=== PATIENT | female | born 1935 | race Caucasian/White ===

== ENCOUNTER 2016-07-21 21:18 | Emergency (ER) | payer OTHER ==
[~2016-07-21 21:18] MED LIST: AMLODIPINE BES2.5 M1 PO; ASPIRIN EC81 M1 PO; ATORVASTATIN CA10 M1 PO; AUGMENTIN 875-1 EACH PO; FOLIC ACID1 M1 PO; JANUVIA 50MG50 MG PO; JANUVIA50 M1 PO; LISINOPRIL20 MG PO; METFORMIN HCL750 MG PO; NOVOLOG100 U/ML SC; ONE DAILY MULT1 EAC2 PO; VITAB121000 PO; VITAMIN D32000 IU PO; ZITHROMAX500 M2 PO
[2016-07-21 21:34] VITALS: BP 179/76
--- NOTE | 2016-07-21 21:40 | ED DYSPNEA/ASTHMA COMPLAINT ---
History of Present Illness General Chief Complaint: General Adult Stated Complaint: " PER SON I THINK SHE ASPIRATED,COUGHING PHLEGM" Source: patient, family, old records Exam Limitations: no limitations Vital Signs & Intake/Output Vital Signs & Intake/Output Vital Signs Date Time Temp Pulse Resp B/P Pulse O2 O2 Flow FiO2 Ox Delivery Rate 07/217 100 Room Air 07/21 2133 96.9 71 24 179/76 Allergies Coded Allergies: No Known Allergies (12/06/15) Reconcile Medications Amlodipine Besylate 2.5 MG TABLET 1 TAB PO DAILY BP (Reported) Aspirin (Ecotrin*) 81 MG TABLET.DR 1 TAB PO DAILY VITAMIN SUPPORT (Reported) Atorvastatin Calcium 10 MG TABLET 1 TAB PO QHS HEART HEALTH (Reported) Azithromycin (Zithromax) 250 MG TABLET 1 DP PO AD bronchitis 2 the first day followed by 1 for days 2-5 Azithromycin (Zithromax) 500 MG TABLET 1 TAB PO DAILY ASPIRATION Cyanocobalamin (Vitamin B-12) 1,000 MCG TAB 1 TAB PO DAILY SUPPLEMET ( Reported) Folic Acid 1 MG TABLET 1 TAB PO DAILY VITAMIN SUPPORT (Reported) Multivitamin (One Daily Multivitamin) 1 EACH TABLET 1 TAB PO DAILY VITAMIN SUPPORT (Reported) Sitagliptin Phosphate (Januvia) 50 MG TABLET 1 TAB PO DAILY DIABETES ( Reported) Vitamin D (Vitamin D3) 2,000 IU SGL 2,000 UNITS PO DAILY SUPPLEMENT (Reported ) Triage Note: PER PT/SON ATE DINNER LATE AND QUICKLY. SHORT TIME LATER BEGAN COUGHING UP PHLEGM, HX OF SAME, SON CONCERNED ABOUT ASPIRATION IN TRIAGE CONTINUALLY SPITTING OUT THICK COPIOUS SECRETIONS Triage Nurses Notes Reviewed? yes Onset: Abrupt Duration: hour(s): (1), better, resolved prior to arrival Timing: recent history Severity: moderate Activities at Onset: s/p eating Prior Episodes/Possible Cause: occasional episodes Associated Symptoms: denies HPI: This is a 80-year-old female with past history of diabetes hypertension and colon cancer in 1998 with previous history of alcohol dependency and frequent aspiration pneumonias presents emergency room with her son who they lives with the patient. According to the patient's son he had made her dinner approximately an hour prior to arrival and while attempting to eat the patient be and to cough aggressively bring up lots of phlegm. They deny any shortness of breath and states that the symptoms have since resolved. She's been in her normal state of health there's been no recent fever chills chest pain shortness of breath. The patient's son states he brought her today because of her frequent history is of aspiration area the patient denies any difficulty swallowing or breathing at this time. no nausea no vomiting, no hemoptysis (REY DUQUE) Past History Travel History Traveled to [place] past 21 day No Medical History Any Pertinent Medical History? see below for history Neurological: CONFUSION HYPONATREMIA EENT: NONE Cardiovascular: hypertension Respiratory: NONE Gastrointestinal: NONE Hepatic: NONE Renal: NONE Musculoskeletal: NONE Psychiatric: NONE Endocrine: diabetes Blood Disorders: NONE Cancer(s): colon/rectal cancer RADIAGRAPH OPERATOR/Reproductive: NONE History of MRSA: No History of VRE: No History of CDIFF: No Surgical History Surgical History: colon resection, hysterectomy, N Psychosocial History Who do you live with Son Services at Home None What is your primary language Romansh Tobacco Use: Never used Family History Family History, If Any: Relation not specified for: FH: heart disease FH: hypertension Hx Contributory? No (REY DUQUE) Review of Systems Review of Systems Constitutional: Reports: see HPI. All Other Systems: Reviewed and Negative Comments Review of systems: See HPI, All other systems negative. Constitutional, no chills no fever, no malaise HEENT: No visual changes no sore throat no congestion, Cardiovascular: No chest pain , no palpitation , no orthopnea no ankle swelling Skin, no jaundice no rashes, no change in skin Respiratory: No dyspnea cough sputum no hemoptysis GI: No nausea no vomiting, no diarrhea, no bloating/constipation : No dysuria Muscle skeletal: No joint pain, no joint swelling, no back pain, no neck pain, Neurologic: No numbness no headache Psych: No stress Heme/endocrine: No bruising no bleeding Immunology: No lymphadenopathy (REY DUQUE) Physical Exam Physical Exam General Appearance: well developed/nourished, no apparent distress, alert, awake , comfortable Respiratory: normal breath sounds, chest non-tender, no respiratory distress, lungs clear Comments: Well-developed well-nourished person in no acute distress HEENT: Normal EENT exam; PERRL, EOMI,HEAD is atraumatic. moist mucous membranes. Neck: Supple, no lymphadenopathy, normal range of motion Back: Nontender, no CVA tenderness. Full range of motion Cardiovascular: Regular rate and rhythms no murmurs rubs or gallops Respiratory: Chest nontender.There were no bony deformities, no asymmetry. No respiratory distress. Patient speaking in full complete sentences. Breath sounds clear to auscultation bilaterally: NO W/R/R Abdomen: Soft, nontender nondistended, no appreciable organomegaly. Normal bowel sounds. No rebound/guarding, Extremity: No edema, full range of motion of extremities, normal and equal pulses bilaterally, 5 out of 5 strength noted to bilateral upper and lower extremities Neuro: Alert oriented x3, motor sensory normal, There were no obvious focal neurologic abnormalities. Skin: No appreciable rash on exposed skin, skin is warm and dry. Psych: Mood and affect is normal, memory and judgment is normal. Core Measures ACS in differential dx? Yes Severe Sepsis Present: No Septic Shock Present: No (GRECIA ESTRADA,REY) Progress Differential Diagnosis: asthma, AMI, bronchitis, CHF, musculoskeletal pain, pericarditis, pulmonary embolism, pneumonia, pneumothorax, unstable angina Plan of Care: Orders Procedure Date/time Status TROPONIN LEVEL 07/21 2211 Complete CBC WITHOUT DIFFERENTIAL 07/21 2211 Complete BASIC METABOLIC PANEL 07/21 2211 Complete EKG 07/21 2211 Active Laboratory Tests 07/21/16 2230: Anion Gap 12, Estimated GFR 43 L, BUN/Creatinine Ratio 27.5 H, Glucose 188 H, Calcium 9.9, Troponin I < 0.01, CBC w Diff NO MAN DIFF REQ, RBC 4.03 L, MCV 88.3, MCH 29.8, RDW 13.3, MPV 8.7, Gran % 76.6 H, Lymphocytes % 15.4 L, Monocytes % 5.4, Eosinophils % 2.1, Basophils % 0.5, Absolute Granulocytes 8.6 H, Absolute Lymphocytes 1.7, Absolute Monocytes 0.6, Absolute Eosinophils 0.2, Absolute Basophils 0.1, PUBS MCHC 33.7 Patient has had no episodes of coughing shortness of breath or any complaints or symptoms at this time labs chest x-ray ordered case discussed with Dr. Villa Patient is ambulatory to the bathroom by herself with steady gait denying any symptoms we'll continue to monitor I discussed the patient and her son at length all of her lab findings and x-ray findings discussed with him need for close follow-up with her primary care physician this week observed for shortness of breath fever chills worsening cough A she clinically appears well prescription for Z-Luis was called into her pharmacy advise return at anytime sooner with any concerns they felt comfortable with this plan. Cleared for discharge (REY DUQUE) Diagnostic Imaging: Viewed by Me: Radiology Read. Discussed w/RAD: Radiology Read. Radiology Impression: PATIENT: PRAFUL BUSTOS PRESENT AGE: 80 PATIENT ACCOUNT NO: [id number] : 33 LOCATION: [facility] ORDERING PHYSICIAN: REY ESTRADA SERVICE DATE: 07/21/16 EXAM TYPE: RAD - XRY-PORTABLE CHEST XRAY EXAMINATION: XR PORTABLE CHEST CLINICAL INFORMATION: 80-year-old woman with vomiting. Evaluate for aspiration. COMPARISON: 06/08/2016 chest radiograph TECHNIQUE: Portable AP view of the chest was obtained. FINDINGS: The lungs are well expanded. No focal consolidation or overt pulmonary edema is appreciated. Cardiomediastinal contours are normal. There are no pleural effusions. IMPRESSION: No radiographic evidence of an acute cardiopulmonary process. DICTATED BY: ROSARIO OLIVARES MD DATE/TIME DICTATED:07/21/162215 PIANO PLAYER:BOSSMAN DATE/TIME TRANSCRIBED:07/21/162215 CONFIDENTIAL, DO NOT COPY WITHOUT APPROPRIATE AUTHORIZATION. <Electronically signed in Other Vendor System> SIGNED BY: ROSARIO OLIVARES MD 07/21/162219 Initial ED EKG: normal intervals, normal p-waves, normal QRS complex, normal sinus rhythm (60) Prior EKG: unchanged (01/2016) (REY DUQUE) Departure Departure Time of Disposition: 2318 Disposition: HOME OR SELF CARE Condition: Stable Clinical Impression Primary Impression: Choked on food Referrals: ASHLEIGH ISRAEL MD (PCP/Family) Additional Instructions: Follow-up with her primary care physician this week Z-Luis as directed, return immediately if she develops fever, redevelops coughing develop shortness of breath or any other concerns. The prescription for the Z-Luis [facility] Departure Forms: Customer Survey General Discharge Information Prescriptions: Current Visit Scripts Azithromycin (Zithromax) 1 DP PO AD #6 TAB 2 the first day followed by 1 for days 2-5 (REY DUQUE) PA/SENIOR PROCUREMENT MANAGER Co-Sign Statement Statement: ED Attending supervision documentation- [X] I saw and evaluated the patient. I have also reviewed all the pertinent lab results and diagnostic results. I agree with the findings and the plan of care as documented in the PA's/SENIOR PROCUREMENT MANAGER's documentation. [X] I have reviewed the ED Record and agree with the PA's/SENIOR PROCUREMENT MANAGER's documentation. [] Additions or exceptions (if any) to the PAs/SENIOR PROCUREMENT MANAGER's note and plan are summarized below: [] (MAN PEDRAZA,ADRIANNA) Critical Care Note Critical Care Note Critical Care Time: non-applicable (REY DUQUE)
--- NOTE | 2016-07-21 22:20 | RADIOLOGY REPORT ---
EXAMINATION: XR PORTABLE CHEST CLINICAL INFORMATION: 80-year-old woman with vomiting. Evaluate for aspiration. COMPARISON: 06/08/2016 chest radiograph TECHNIQUE: Portable AP view of the chest was obtained. FINDINGS: The lungs are well expanded. No focal consolidation or overt pulmonary edema is appreciated. Cardiomediastinal contours are normal. There are no pleural effusions. IMPRESSION: No radiographic evidence of an acute cardiopulmonary process.
[2016-07-21 22:54] LABS: ABSOLUTE BASOPHIL COUNT 0.1 /CUMM (0.0-0.2); ABSOLUTE EOSINOPHIL COUNT 0.2 /CUMM (0.0-0.7); ABSOLUTE GRANULOCYTE CT 8.6 /CUMM (1.4-6.5); ABSOLUTE LYMPH COUNT 1.7 /CUMM (1.2-3.4); ABSOLUTE MONOCYTE COUNT 0.6 /CUMM (0.10-0.60); BASOPHIL % 0.5 % (0.0-2.0); EOSINOPHIL % 2.1 % (0-5); GRANULOCYTE % 76.6 % (42.2-75.2); HEMATOCRIT 35.6 % (37-47); MEAN CORPUSCULAR HGB 29.8 PG (27.0-31.0); MEAN CORPUSCULAR HGB CONC 33.7 G/DL (33.0-37.0); MEAN CORPUSCULAR VOLUME 88.3 FL (81.0-99.0); MEAN PLATELET VOLUME 8.7 FL (7.4-10.4); PLATELET COUNT 284 /CUMM (130-400); RBC DISTRIBUTION WIDTH 13.3 % (11.5-14.5); RED BLOOD CELL CT 4.03 /CUMM (4.20-5.40); WHITE BLOOD CELL COUNT 11.2 /CUMM (4.8-10.8)
[2016-07-21] MEDS ORDERED: ZITHROMAX250 M2 PO (23:20)
== END 2016-07-21 23:36 ==
LOC: ERH 21:18
PROVIDERS: Physician Assistant Medical
DX: T18.128A Food in esophagus causing other injury, initial encounter (principal); I10 Essential (primary) hypertension
CPT/HCPCS: 93005; 93010